=== PATIENT | male | born 1960 | race Caucasian/White ===

== ENCOUNTER → 2020-03-16 | Outpatient (CLI) | payer BC | LOC: SJCVCIMAG 03-02 09:17 | PROVIDERS: ATTEND Internal Medicine | DX: I48.91 Unspecified atrial fibrillation (principal); I10 Essential (primary) hypertension ==

== ENCOUNTER → 2020-03-29 | Outpatient (CLI) | payer BC ==
[~2020-03-29] MED LIST: AMITRIPTYLINE H25 M2 PO; DILTIAZEM ER180 M2 PO; DOCUSATE CALCI240 MG PO; ELMIRON 100 MG100 M1 PO; KLOR-CON M2020 MEQ PO; PRAVASTATIN SOD80 MG PO; VALSARTAN320 MG PO; XARELTO20 MG PO
== END ==
LOC: LAB 08:04
PROVIDERS: ATTEND Internal Medicine
DX: Z01.812 Encounter for preprocedural laboratory examination (principal); Z20.828 Contact with and (suspected) exposure to other viral communicable diseases

== ENCOUNTER → 2020-04-01 | Outpatient (CLI) | payer BC ==
[~2020-04-01] VITALS: Ht 180.3 cm; Wt 122.9 kg
[2020-04-01 07:08] VITALS: BP 138/80
--- NOTE | 2020-04-01 07:42 | EKG ---
[facility] [place] [address] ELECTROCARDIOGRAM REPORT Name: TY WELLS Room #: REG CLI [facility].#: [id number] Admission: 04/01/20 Attend Phys: Balwinder Blood MD, Discharge: Date of : 64 Report #: [id number] THIS REPORT FOR: cc: Hung VELEZ,Israel Persaud II,Israel Aguayo,Vishal [facility] ~ THIS REPORT FOR: //name// [facility] Test Date: 2020-04-01 Test Time: 07:31:20 Pat Name: TY WELLS Department: Room: Gender: Home Care Associate: [facility] : 1960 Requested By: Balwinder Blood Order Number: [id number] MD: Vishal Aguayo Measurements Intervals [place] Rate: 58 P: -13 CT: 256 QRS: -28 QRSD: 110 T: 101 QT: 465 QTc: 457 Interpretive Statements Sinus rhythm Prolonged CT interval Borderline left axis deviation Abnormal R-wave progression, late transition Nonspecific T abnrm, anterolateral leads No previous ECG available for comparison Electronically Signed On 04-01-2020 7:41:44 [employer] by Vishal Aguayo [email or web address] <ELECTRONICALLY SIGNED> By: Vishal Aguayo MD, FACC 04/01/2041 0 0 Vishal Aguayo MD, [facility] /EPI
--- NOTE | 2020-04-01 09:15 | CATHLAB ---
[facility] [place] [address] [place] [address] INVASIVE PROCEDURE REPORT Name: TY WELLS Room #: REG [facility] Law.#: [id number] Admission: 04/01/20 Attend Phys: Balwinder Blood MD, Discharge: Date of : 64 Report #: [id number] THIS REPORT FOR: cc: Hung VELEZ,Israel Persaud II,Israel Blood,Balwinder Brewer MD [facility] ~ APPROVED REPORT Study performed: 04/01/2020 08:04:14 Patient Details Patient Status: Out-Patient Room #: The patient is a 59 year-old male Event Personnel Balwinder Blood Swimmer, Garrick Bhakta RN RN, Marito Lozano RTR Scrub, Hannah Head RTR, DERIK Scrub, Yina Dalton Monitor Procedures Performed Art Access - R femoral artery* Left Heart Cath w/or w/o Coronaries [id number] [facility] [address]292 Initial Mod Sed Same Phys/QHP [facility] [id number] Mod Sed Same Phys/QHP Ea [id number] Hemostasis w/ Mynx Indication Chest pain Procedure Narrative The Right Groin^ was infiltrated with 1% Lidocaine subcutaneous anesthesia. A PINNACLE 6FR Sheath #[id number] sheath was inserted into the RFA 6F^. Coronary angiography was performed using coronary diagnostic catheters. The right coronary system was accessed and visualized with a JR4 catheter. The left coronary system was accessed and visualized with a JL4 catheter. The left ventricle was accessed and visualized with a ANGLE PIG catheter. Left ventriculogram was performed in 30 degree projection. The patient tolerated the procedure well and there were no complications associated with the procedure. There was no hematoma. Intraoperative Conscious Sedation Sedation start time: 812 Case end Time: 844 Fentanyl 50 mcg Versed 1 mg [facility] [address] [place] [address] INVASIVE PROCEDURE REPORT Name: PRISCILLATY Room #: REG [facility]#: [id number] Admission: 04/01/20 Attend Phys: Balwinder Blood, Discharge: Date of : 64 Report #: [id number] Fluoro Time: 2.80 minutes Dose: DAP 7325.00 cGycm2 1070 mGy Contrast Type and Amount: Omnipaque 125 ml Coronary Angiography The patient's coronary anatomy is right dominant. Diagnostic Cath Left Main Normal left main LAD Normal left anterior descending Diagonal 1 Large, normal first diagonal branch Circumflex Large, nondominant circumflex comprised of two marginal branches OM1 Large bifurcating marginal branch, angiographically normal OM2 Small second marginal branch, angiographically normal Right Coronary Dominant right coronary, angiographically normal R PDA Normal posterior descending RPLV Normal posterior lateral branch Left Ventriculography The left ventricle is normal in size with normal contractility. The left ventricular ejection fraction is estimated to be 60-65%. Left ventricular wall motion abnormalities are not present. There is no mitral insufficiency. Hemodynamics The aortic pressure is 139/70 mmHg with a mean of 100 mmHg. The left ventricular pressure is 130/14 mmHg with a mean of mmHg. The left ventricular end diastolic pressure is 26 mmHg. Conclusion 1. Normal global and regional left ventricular systolic function. EF 60-65% 2. Normal left main 3. Normal coronary vasculature. Right coronary dominant circulation <ELECTRONICALLY SIGNED> By: Balwinder Blood MD, FACC 04/01/20914 4 4 Balwinder Blood MD, FACC /INF
== END | disposition home or self-care (01) ==
LOC: CATH 06:22
PROVIDERS: ATTEND Internal Medicine
DX: R07.9 Chest pain, unspecified (principal); I10 Essential (primary) hypertension; I48.0 Paroxysmal atrial fibrillation; E78.5 Hyperlipidemia, unspecified; Z98.890 Other specified postprocedural states; Z79.899 Other long term (current) drug therapy; Z82.49 Family history of ischemic heart disease and other diseases of the circulatory system; Z88.8 Allergy status to other drugs, medicaments and biological substances; Z79.01 Long term (current) use of anticoagulants